=== PATIENT | male | born 1950 | race Asian ===

== ENCOUNTER 2022-08-25 18:47 | Emergency (ER) | payer OTHER ==
[~2022-08-25] VITALS: Ht 175.3 cm; Wt 59.0 kg
[2022-08-25 18:48] VITALS: BP 190/83; TEMP 98.3
[2022-08-25 19:09] LABS: PLATELET COUNT 251 K/uL (142-355)
[2022-08-25 19:19] LABS: POTASSIUM 3.7 mmol/L (3.6-5.2)
[2022-08-25] MEDS ORDERED: AMLODIPINE PO (21:51)
[2022-08-25] MEDS ORDERED: BAYER CHEWABLE81 MG PO (21:51)
[2022-08-25] MEDS ORDERED: LIPITOR80 MG PO (21:53)
[2022-08-25] MEDS ORDERED: NICOTINE T21 MG/241 TD (21:54)
[2022-08-25] MEDS ORDERED: METO25TA4 PO (21:55)
[2022-08-25] MEDS ORDERED: ELIQUIS5 MG PO (21:55)
[2022-08-28] MEDS ORDERED: NORVASC 5MG TAB PO (14:21)
[2022-08-28] MEDS ORDERED: APIX1TAB PO (14:21)
[2022-08-28] MEDS ORDERED: ASPI81TA4 PO (14:22)
[2022-08-28] MEDS ORDERED: CHOL100034 PO (14:22)
[2022-08-28] MEDS ORDERED: ATOR20TA2 PO (14:22)
[2022-08-28] MEDS ORDERED: MAGNSUS68 PO (14:23)
[2022-08-28] MEDS ORDERED: METO-837 PO (14:23)
[2022-08-28] MEDS ORDERED: NICODERM CQ 21MG/HR TD (14:23)
== END 2022-08-25 20:30 | disposition still patient (30) ==
LOC: ED 18:47
PROVIDERS: Emergency Medicine
DX: R45.1 Restlessness and agitation (principal); I62.9 Nontraumatic intracranial hemorrhage, unspecified; I10 Essential (primary) hypertension; Z02.79 Encounter for issue of other medical certificate
CPT/HCPCS: 36415; 80053; 85027; 87635; 93005; 99284; U0003

== ENCOUNTER 2022-08-26 19:32 | Emergency (ER) | payer OTHER ==
[~2022-08-26] VITALS: Ht 182.9 cm; Wt 77.1 kg
[~2022-08-26 19:32] MED LIST: AMLODIPINE PO; BAYER CHEWABLE81 MG PO; ELIQUIS5 MG PO; LIPITOR80 MG PO; METO25TA4 PO; NICOTINE T21 MG/241 TD
[2022-08-26 19:37] VITALS: BP 109/63; TEMP 97.8
[2022-08-28] MEDS ORDERED: APIX1TAB PO (14:21)
[2022-08-28] MEDS ORDERED: NORVASC 5MG TAB PO (14:21)
[2022-08-28] MEDS ORDERED: ASPI81TA4 PO (14:22)
[2022-08-28] MEDS ORDERED: ATOR20TA2 PO (14:22)
[2022-08-28] MEDS ORDERED: CHOL100034 PO (14:22)
[2022-08-28] MEDS ORDERED: NICODERM CQ 21MG/HR TD (14:23)
[2022-08-28] MEDS ORDERED: METO-837 PO (14:23)
[2022-08-28] MEDS ORDERED: MAGNSUS68 PO (14:23)
== END 2022-08-26 20:58 | disposition home or self-care (01) ==
LOC: ED 19:32
DX: S30.0XXA Contusion of lower back and pelvis, initial encounter (principal); S00.03XA Contusion of scalp, initial encounter; S80.01XA Contusion of right knee, initial encounter; W19.XXXA Unspecified fall, initial encounter
CPT/HCPCS: 99283